=== PATIENT | male | born 1965 | race Caucasian/White ===

== ENCOUNTER 2019-07-07 17:38 | Inpatient (IN) ==
[2019-07-07] MEDS ORDERED: Ondansetron ODT 4 MG TAB.RAPDIS SL PRN (20:18)
[2019-07-07] MEDS ORDERED: Naloxone 0.4 MG/ML INJ IVP PRN (20:18)
[2019-07-07] MEDS ORDERED: 0.9 % Sodium Chloride 1,000 ML IVC ONE (21:39)
[2019-07-07] MEDS: *HR* HYDROcodone/Acet 10/325 mg TABLET PO PRN (22:15)
[2019-07-07] MEDS: PHENobarbitaL 32.4 MG TABLET PO SCH (22:16)
[2019-07-07] MEDS: diazePAM 10 MG TABLET PO SCH (22:16)
[2019-07-08 04:40] LABS: Hematocrit 39.3 % (37.5-50.1); Hemoglobin 12.5 g/dL (12.9-16.9); Mean Corpuscular HGB Conc 31.8 g/dL (31.6-35.5); Mean Corpuscular Hemoglobin 31.4 pg (28.0-33.3); Mean Corpuscular Volume 98.7 fL (83.0-100.0); Mean Platelet Volume 9.3 fL (9.4-12.4); Platelet Count 191 K/mcL (140-400); Red Blood Count 3.98 M/mcL (4.19-5.50); Red Cell Distribution Width 14.1 % (11.5-14.5); White Blood Count 24.5 K/mcL (4.3-11.1)
[2019-07-08 04:58] LABS: BUN/Creatinine Ratio 20 (6-26); Blood Urea Nitrogen 25 mg/dL (6-20); Calcium 8.2 mg/dL (8.6-10.3); Carbon Dioxide 23 mEq/L (23-29); Chloride 101 mEq/L (98-107); Glucose 102 mg/dL (70-105); Magnesium 1.4 mg/dL (1.6-2.6); Osmolality,Calculated 283 (280-300); Phosphorous 2.4 mg/dL (2.7-4.5); Potassium 4.8 mEq/L (3.5-5.1); Sodium 134 mEq/L (136-145); eGFR For African Americans > 60 (> 60); eGFR For Non-African Americans 60 (> 60)
[2019-07-08 05:15] LABS: Monocytes # 0.5 K/mcL (0.0-1.3); Platelet Estimate Normal (Normal)
[2019-07-08] MEDS ORDERED: *HR* Heparin 5,000 UNIT/ML VIAL SQ SCH (06:00)
[2019-07-08] MEDS: *HR* HYDROcodone/Acet 10/325 mg TABLET PO PRN ×2 (06:06→12:08)
[2019-07-08] MEDS: diazePAM 10 MG TABLET PO SCH ×4 (07:55→20:46)
[2019-07-08] MEDS ORDERED: Potassium Phosphate 44 MEQ in 0.9 % Sodium Chloride 250 ML IVPB ONE (10:28)
[2019-07-08 11:34] LABS: Albumin/Globulin Ratio 1.2 (1.1-2.2); Bilirubin,Direct 0.1 mg/dL (0.0-0.2); Bilirubin,Indirect 0.1 mg/dL (0.0-1.0); Bilirubin,Total 0.2 mg/dL (0.3-1.0); Globulin 2.5 g/dL (2.4-3.5); Total Protein 5.5 g/dL (6.4-8.9)
[2019-07-08] MEDS: levoFLOXacin 750 MG/150 ML 750 MG/150 ML BAG IVPB SCH (13:40)
[2019-07-08] MEDS: Lactulose Oral Soln 20 GM/30 ML UDC PO SCH ×2 (13:41→20:46)
[2019-07-08] MEDS: MethylPREDNISolone 40 MG/ML VIAL IVP SCH (17:05)
[2019-07-08] MEDS: Nicotine 21 MG PATCH.TD24 TD SCH (17:05)
[2019-07-08] MEDS: PHENobarbitaL 32.4 MG TABLET PO SCH (20:46)
[2019-07-09 02:29] LABS: Basophils # 0.1 K/mcL (0.0-0.2); Basophils % 0.3 %; Hematocrit 34.5 % (37.5-50.1); Immature Granulocytes % 4.7 % (0-4); Lymphocytes # 1.5 K/mcL (0.6-4.6); Lymphocytes % 6.7 %; Mean Corpuscular HGB Conc 31.9 g/dL (31.6-35.5); Mean Corpuscular Hemoglobin 31.1 pg (28.0-33.3); Mean Corpuscular Volume 97.5 fL (83.0-100.0); Mean Platelet Volume 9.6 fL (9.4-12.4); Monocytes # 1.1 K/mcL (0.0-1.3); Platelet Count 217 K/mcL (140-400); Red Blood Count 3.54 M/mcL (4.19-5.50); Segmented Neutrophils % 83.3 %; White Blood Count 21.6 K/mcL (4.3-11.1)
[2019-07-09 02:52] LABS: BUN/Creatinine Ratio 21 (6-26); Blood Urea Nitrogen 17 mg/dL (6-20); Calcium 8.2 mg/dL (8.6-10.3); Carbon Dioxide 22 mEq/L (23-29); Chloride 103 mEq/L (98-107); Glucose 103 mg/dL (70-105); Magnesium 2.1 mg/dL (1.6-2.6); Osmolality,Calculated 278 (280-300); Potassium 4.4 mEq/L (3.5-5.1); Sodium 133 mEq/L (136-145); eGFR For African Americans > 60 (> 60); eGFR For Non-African Americans > 60 (> 60)
[2019-07-09] MEDS: *HR* HYDROcodone/Acet 10/325 mg TABLET PO PRN ×3 (03:08→22:55)
[2019-07-09] MEDS: Levalbuterol Neb 1.25 MG/3 ML IH SCH ×4 (03:46→15:43)
[2019-07-09] MEDS: MethylPREDNISolone 40 MG/ML VIAL IVP SCH ×2 (05:41→17:21)
[2019-07-09] MEDS: Lactulose Oral Soln 20 GM/30 ML UDC PO SCH ×3 (07:36→21:41)
[2019-07-09] MEDS: Nicotine 21 MG PATCH.TD24 TD SCH (07:36)
[2019-07-09] MEDS: *HR* Enoxaparin 40 MG/0.4 ML SYRINGE SQ SCH (07:37)
[2019-07-09] MEDS: diazePAM 10 MG TABLET PO SCH ×4 (07:44→21:39)
[2019-07-09] MEDS ORDERED: Ondansetron 4 MG/2 ML VIAL ONE (10:53)
[2019-07-09] MEDS ORDERED: Dexamethasone 4 MG/ML VIAL ONE (10:53)
[2019-07-09] MEDS ORDERED: Lidocaine -MPF 2% 2 ML VIAL ONE (10:53)
[2019-07-09] MEDS ORDERED: *HR* Propofol 200 MG/20 ML VIAL IVP ONE (10:53)
[2019-07-09] MEDS ORDERED: Lidocaine HCL 4 ML Topical Solution (Laryng-O-Jet Kit Sterile Pak) TP ONE (10:53)
[2019-07-09] MEDS ORDERED: *HR* Succinylcholine 200 MG/10 ML VIAL IVP ONE (10:53)
[2019-07-09] MEDS: levoFLOXacin 750 MG/150 ML 750 MG/150 ML BAG IVPB SCH (13:06)
[2019-07-09] MEDS: PHENobarbitaL 32.4 MG TABLET PO SCH (21:40)
[2019-07-09] MEDS: Levalbuterol Neb 0.63 MG/3 ML IH SCH (22:16)
[2019-07-09] MEDS: Ipratropium Neb 0.5 MG NEBULIZER IH SCH (22:16)
[2019-07-09] MEDS: Vancomycin 1,250 MG/262.5 ML IV.SOLN IVPB SCH (22:58)
[2019-07-10] MEDS ORDERED: *HR* HYDROcodone/Acet 10/325 mg TABLET PO ONE (00:45)
[2019-07-10] MEDS: Ipratropium Neb 0.5 MG NEBULIZER IH SCH ×4 (03:25→22:57)
[2019-07-10] MEDS: Levalbuterol Neb 0.63 MG/3 ML IH SCH ×4 (03:25→22:58)
[2019-07-10 04:59] LABS: Basophils % 0.2 %; Eosinophils % 0.2 %; Hematocrit 38.8 % (37.5-50.1); Hemoglobin 12.3 g/dL (12.9-16.9); Immature Granulocytes % 0.5 % (0-4); Lymphocytes # 2.3 K/mcL (0.6-4.6); Lymphocytes % 13.1 %; Mean Corpuscular HGB Conc 31.7 g/dL (31.6-35.5); Mean Corpuscular Hemoglobin 31.3 pg (28.0-33.3); Mean Corpuscular Volume 98.7 fL (83.0-100.0); Mean Platelet Volume 9.7 fL (9.4-12.4); Monocytes # 0.7 K/mcL (0.0-1.3); Monocytes % 4.2 %; Neutrophils # 14.2 K/mcL (1.6-8.9); Platelet Count 238 K/mcL (140-400); Red Blood Count 3.93 M/mcL (4.19-5.50); Red Cell Distribution Width 14.2 % (11.5-14.5); Segmented Neutrophils % 81.8 %; White Blood Count 17.3 K/mcL (4.3-11.1)
[2019-07-10 05:17] LABS: BUN/Creatinine Ratio 16 (6-26); Blood Urea Nitrogen 11 mg/dL (6-20); Calcium 8.5 mg/dL (8.6-10.3); Carbon Dioxide 25 mEq/L (23-29); Chloride 103 mEq/L (98-107); Glucose 95 mg/dL (70-105); Magnesium 2.1 mg/dL (1.6-2.6); Osmolality,Calculated 279 (280-300); Potassium 3.7 mEq/L (3.5-5.1); Sodium 135 mEq/L (136-145); eGFR For African Americans > 60 (> 60); eGFR For Non-African Americans > 60 (> 60)
[2019-07-10] MEDS ORDERED: *HR* LORazepam 2 MG/ML VIAL IVP ONE ×2 (06:16→21:59)
[2019-07-10] MEDS: MethylPREDNISolone 40 MG/ML VIAL IVP SCH ×2 (06:19→17:32)
[2019-07-10] MEDS: *HR* Enoxaparin 40 MG/0.4 ML SYRINGE SQ SCH (06:21)
[2019-07-10] MEDS: Nicotine 21 MG PATCH.TD24 TD SCH (07:51)
[2019-07-10] MEDS: Lactulose Oral Soln 20 GM/30 ML UDC PO SCH ×2 (07:52→19:57)
[2019-07-10] MEDS: *HR* HYDROcodone/Acet 10/325 mg TABLET PO PRN ×2 (09:51→20:04)
[2019-07-10] MEDS: Vancomycin 1,250 MG/262.5 ML IV.SOLN IVPB SCH ×2 (11:15→20:05)
[2019-07-10] MEDS ORDERED: Azithromycin 500 MG in 0.9 % Sodium Chloride 250 ML IVPB SCH (14:25)
[2019-07-10] MEDS: levoFLOXacin 750 MG/150 ML 750 MG/150 ML BAG IVPB SCH (14:28)
[2019-07-10] MEDS ORDERED: cefTRIAXone 1,000 MG in Water for inj. (sterile) 10 ML IVP SCH (14:30)
[2019-07-10] MEDS: Budesonide/Formoterol 160/4.5 1 PUFF INH IH SCH ×2 (15:33→22:58)
[2019-07-10] MEDS ORDERED: PHENobarbitaL 32.4 MG TABLET PO SCH (21:00)
[2019-07-10] MEDS ORDERED: Nicotine 21 MG PATCH.TD24 TD SCH (23:45)
[2019-07-11 01:27] LABS: Basophils % 0.2 %; Eosinophils % 0.2 %; Hematocrit 33.6 % (37.5-50.1); Hemoglobin 11.1 g/dL (12.9-16.9); Immature Granulocytes % 0.7 % (0-4); Lymphocytes % 17.4 %; Mean Corpuscular Hemoglobin 31.8 pg (28.0-33.3); Mean Corpuscular Volume 96.3 fL (83.0-100.0); Mean Platelet Volume 9.3 fL (9.4-12.4); Monocytes % 8.4 %; Neutrophils # 8.3 K/mcL (1.6-8.9); Platelet Count 251 K/mcL (140-400); Red Blood Count 3.49 M/mcL (4.19-5.50); Red Cell Distribution Width 13.9 % (11.5-14.5); Segmented Neutrophils % 73.1 %; White Blood Count 11.4 K/mcL (4.3-11.1)
[2019-07-11 01:49] LABS: BUN/Creatinine Ratio 13 (6-26); Blood Urea Nitrogen 8 mg/dL (6-20); Calcium 7.8 mg/dL (8.6-10.3); Carbon Dioxide 26 mEq/L (23-29); Chloride 102 mEq/L (98-107); Glucose 90 mg/dL (70-105); Osmolality,Calculated 278 (280-300); Potassium 3.9 mEq/L (3.5-5.1); Sodium 135 mEq/L (136-145); eGFR For African Americans > 60 (> 60); eGFR For Non-African Americans > 60 (> 60)
[2019-07-11] MEDS: Ipratropium Neb 0.5 MG NEBULIZER IH SCH ×2 (03:49→10:32)
[2019-07-11] MEDS: Levalbuterol Neb 0.63 MG/3 ML IH SCH ×2 (03:49→10:32)
[2019-07-11] MEDS: *HR* Enoxaparin 40 MG/0.4 ML SYRINGE SQ SCH (05:37)
[2019-07-11] MEDS: *HR* HYDROcodone/Acet 10/325 mg TABLET PO PRN ×2 (05:49→12:21)
[2019-07-11] MEDS ORDERED: predniSONE 20 MG TABLET PO SCH (09:00)
[2019-07-11] MEDS: Nicotine 21 MG PATCH.TD24 TD SCH (09:34)
[2019-07-11] MEDS: Lactulose Oral Soln 20 GM/30 ML UDC PO SCH (09:37)
[2019-07-11] MEDS: Budesonide/Formoterol 160/4.5 1 PUFF INH IH SCH (10:32)
[2019-07-11 11:45] VITALS: BP 123/79
[2019-07-11] MEDS ORDERED: Cefdinir 300 MG CAPSULE PO SCH (12:00)
[2019-07-11] MEDS ORDERED: Azithromycin 250 MG TABLET PO SCH (12:00)
[2019-07-11 15:07] LABS: Influenza A PCR Body Fluid NOT DETECTED; Influenza B PCR Body Fluid NOT DETECTED; RVP Body Fluid Source BAL RUL
[2019-07-11 17:02] LABS: Phenytoin (Dilantin) Free 1.7 ug/mL (1.0-2.5)
[2019-07-12 07:10] LABS: Phenytoin Percent Free 12.8 % (8.0-14.0)
[2019-07-12 07:19] LABS: RSV PCR Body Fluid NOT DETECTED
== END 2019-07-11 13:10 | disposition home or self-care (01) | DRG 720 ==
LOC: 2NENU → SUATTDRO 19:21 → 2ANU 07-09 00:19 → 3NENU 07-09 18:19
PROVIDERS: ADMIT Family Medicine; ATTEND Pharmacist